=== PATIENT | male | born 1975 | race Caucasian/White ===

== ENCOUNTER 2017-07-18 13:39 | Observation (INO) | payer OTHER ==
[2017-07-18] MEDS ORDERED: Aspirin 81 MG Tab.Chew PO ONE (13:51)
[2017-07-18] MEDS ORDERED: LORazepam 2 MG/ML SDV IVPUSH ONE (13:52)
[2017-07-18] MEDS ORDERED: Sodium Chloride 0.9% 2.5 ML Syringe FLUSH PRN ×3 (13:53→17:55)
[2017-07-18] MEDS ORDERED: Sodium Chloride 0.9% 10 ML Syringe FLUSH PRN ×2 (13:53→17:55)
[2017-07-18] MEDS: Nitroglycerin 0.4 MG Tab.SL SL PRN ×3 (13:57→14:17)
--- NOTE | 2017-07-18 15:15 | EDM.PDOC ---
ED HPI GENERAL MEDICAL PROBLEM - General Chief Complaint: Chest Pain Stated Complaint: CHEST PAIN Time Seen by Provider: 07/18/17 13:55 Source of Information: Reports: Patient History Limitations: Reports: No Limitations - History of Present Illness INITIAL COMMENTS - FREE TEXT/NARRATIVE: Presents reporting hypertension and chest pain. Patient reports a two-week history of some chest pain--he was seen by his primary provider one week ago. He was found to be hypertensive and was started on 2 new medications. He was set up for a stress test with cardiology for tomorrow after ACS was ruled out. He states that he has had some constant substernal chest pain which radiates some to the left precordium and occasionally into the left shoulder and down to the fingers. He has pain even at rest at a low level. He characterizes the pain as "sharp". Not accompanied by nausea or sweating but does make him feel like he is somewhat short of breath. Today, after getting up with his usual level of chest pain it became worse and he became concerned. He also had a headache some lightheadedness and felt like his blood pressure was up. - Related Data Allergies Allergy/AdvReac Type Severity Reaction Status Date / Time loratadine [From Claritin] Allergy Disorientat Verified 02/24/15 13:59 ion Shellfish Allergy Swelling Uncoded 09/12/14 14:35 Home Meds: Home Meds Zolpidem [Ambien] 1 tab PO DAILY PRN 09/12/14 [History] oxyCODONE HCl/Acetaminophen [Endocet 7.5-325 mg Tablet] 1 tab PO Q8H PRN [History] tiZANidine HCl [Tizanidine HCl] 1 tab PO Q4HR PRN 09/12/14 [History] Past Medical History Cardiovascular History: Reports: Hypertension Other Respiratory History: 20 yr history smoking on/off tobacco use, Using CHantix to reduce and quit Other Genitourinary History: Penile mass past 3 yrs, gradually increasing in size Other Musculoskeletal History: hx: fractured arm, Chronic low back pain, hx: low back surgery, myofascial pain syndrome, Ulnar neuropathy of both Upper Extremities - Past Surgical History Other Neurological Surgeries/Procedures: Low back surgery Other Musculoskeletal Surgeries/Procedures:: lower back surgery Social & Family History - Tobacco Use Smoking Status *Q: Current Every Day Smoker Years of Tobacco use: 20 Packs/Tins Daily: 1 - Caffeine Use Caffeine Use: Reports: Other - Recreational Drug Use Recreational Drug Use: No Drug Use in Last 12 Months: No ED ROS GENERAL - Review of Systems Review Of Systems: ROS reveals no pertinent complaints other than HPI. ED EXAM, GENERAL - Physical Exam Exam: See Below Exam Limited By: No Limitations General Appearance: Alert, No Apparent Distress Ears: Normal External Exam Nose: Normal Inspection Throat/Mouth: Normal Inspection Head: Atraumatic, Normocephalic Neck: Normal Inspection Respiratory/Chest: No Respiratory Distress, Lungs Clear, Normal Breath Sounds Cardiovascular: Normal Peripheral Pulses, Regular Rate, Rhythm, No Murmur GI/Abdominal: Soft Extremities: Normal Inspection Neurological: Alert, Oriented Psychiatric: Anxious (Mildly) Skin Exam: Warm, Dry, Intact, Normal Color, No Rash Lymphatic: No Adenopathy Course - Vital Signs Last Recorded V/S: Last Vital Signs Temp 36.0 C 07/18/17 13:47 Pulse 83 07/18/17 15:32 Resp 13 07/18/17 15:32 BP 111/73 07/18/17 15:32 Pulse Ox 94 L 07/18/17 15:32 - Orders/Labs/Meds Orders: Active Orders 24 hr Category Date Time Status EKG 12 Lead [EKG Documentation Completion] [RC] STAT Care 07/18/17 13:47 Active EKG Documentation Completion [RC] STAT Care 07/18/17 13:53 Active Pulse Oximetry [RC] ASDIRECTED Care 07/18/17 13:53 Active Sodium Chloride 0.9% [Saline Flush] Med 07/18/17 13:53 Active 10 ml FLUSH ASDIRECTED PRN Sodium Chloride 0.9% [Saline Flush] Med 07/18/17 13:53 Active 2.5 ml FLUSH ASDIRECTED PRN Sodium Chloride 0.9% [Saline Flush] Med 07/18/17 13:53 Active 2.5 ml FLUSH ASDIRECTED PRN Saline Lock Insert [OM.PC] Stat Oth 07/18/17 13:53 Ordered Medication Orders Sodium Chloride (Saline Flush) 2.5 ml FLUSH ASDIRECTED PRN PRN Reason: Keep Vein Open Last Admin: 07/18/17 13:58 Dose: 2.5 ml Sodium Chloride (Saline Flush) 10 ml FLUSH ASDIRECTED PRN PRN Reason: Keep Vein Open Last Admin: 07/18/17 13:58 Dose: 10 ml Sodium Chloride (Saline Flush) 2.5 ml FLUSH ASDIRECTED PRN PRN Reason: Keep Vein Open Last Admin: 07/18/17 13:58 Dose: 2.5 ml Labs: Laboratory Tests 07/18/17 07/18/17 Range/Units 13:44 14:42 WBC 13.77 H (4.0-11.0) K/uL RBC 5.39 (4.50-5.90) M/uL Hgb 17.2 H (13.0-17.0) g/dL Hct 48.2 (38.0-50.0) % MCV 89.4 (80.0-98.0) fL MCH 31.9 (27.0-32.0) pg MCHC 35.7 (31.0-37.0) g/dL RDW Std Deviation 44.3 (28.0-62.0) fl RDW Coeff of Gonzalo 14 (11.0-15.0) % Plt Count 289 (150-400) K/uL MPV 11.20 (7.40-12.00) fL Neut % (Auto) 73.3 (48.0-80.0) % Lymph % (Auto) 19.8 (16.0-40.0) % Delta % (Auto) 5.9 (0.0-15.0) % Eos % (Auto) 0.8 (0.0-7.0) % Baso % (Auto) 0.2 (0.0-1.5) % Neut # (Auto) 10.1 H (1.4-5.7) K/uL Lymph # (Auto) 2.7 H (0.6-2.4) K/uL [place] # (Auto) 0.8 (0.0-0.8) K/uL Eos # (Auto) 0.1 (0.0-0.7) K/uL Baso # (Auto) 0.0 (0.0-0.1) K/uL Nucleated RBC % 0.0 /100WBC Nucleated RBCs # 0 K/uL Sodium 138 (136-148) mmol/L Potassium 3.5 (3.5-5.1) mmol/L Chloride 106 (98-107) mmol/L Carbon Dioxide 25.9 (21.0-32.0) mmol/L BUN 11 (7.0-18.0) mg/dL Creatinine 1.0 (0.8-1.3) mg/dL Est Cr Clr Drug Dosing 115.01 mL/min Estimated GFR (MDRD) > 60.0 ml/min Glucose 139 H (74-106) mg/dL Calcium 8.9 (8.5-10.1) mg/dL Total Bilirubin 0.3 (0.2-1.0) mg/dL AST 38 H (15-37) IU/L ALT 60 (14-63) IU/L Alkaline Phosphatase 82 (46-116) U/L Troponin I < 0.050 (0.000-0.056) ng/mL Total Protein 7.1 (6.4-8.2) g/dL Albumin 3.4 (3.4-5.0) g/dL Globulin 3.7 H (2.0-3.5) g/dL Albumin/Globulin Ratio 0.9 L (1.3-2.8) Meds: Medications Generic Name Dose Route Start Last Admin Trade Name Freq PRN Reason Stop Dose Admin Sodium Chloride 2.5 ml 07/18/17 13:53 07/18/17 13:58 Saline Flush FLUSH 2.5 ml ASDIRECTED PRN Administration Keep Vein Open Sodium Chloride 10 ml 07/18/17 13:53 07/18/17 13:58 Saline Flush FLUSH 10 ml ASDIRECTED PRN Administration Keep Vein Open Sodium Chloride 2.5 ml 07/18/17 13:53 07/18/17 13:58 Saline Flush FLUSH 2.5 ml ASDIRECTED PRN Administration Keep Vein Open Discontinued Medications Generic Name Dose Route Start Last Admin Trade Name Freq PRN Reason Stop Dose Admin Aspirin 324 mg 07/18/17 13:51 07/18/17 13:56 Aspirin PO 07/18/17 13:52 324 mg ONETIME ONE Administration Lorazepam 0.5 mg 07/18/17 13:52 07/18/17 14:21 Ativan IVPUSH 07/18/17 13:53 0.5 mg ONETIME ONE Administration Nitroglycerin 0.4 mg 07/18/17 13:52 07/18/17 14:17 Nitrostat SL 0.4 mg Q5M PRN Administration Chest Pain - Re-Assessments/Exams Free Text/Narrative Re-Assessment/Exam: 07/18/17 15:49 After 3 nitroglycerin sublingual, Ativan 0.5 mg and one hours time the patient' s chest pain slowly came down to 1-2 but remained substernal. No other associated symptoms. He has been resting quietly. Dr.Antohi SAINZ hospitalist called, history and ER course reviewed. Will admit for observation under telemetry. Departure - Departure Time of Disposition: 15:53 Disposition: Home, Self-Care 01 Condition: Good Clinical Impression: Atypical chest pain Forms: ED Department Discharge - My Orders Last 24 Hours: My Active Orders 07/18/17 13:53 EKG Documentation Completion [RC] STAT Pulse Oximetry [RC] ASDIRECTED Sodium Chloride 0.9% [Saline Flush] 10 ml FLUSH ASDIRECTED PRN Sodium Chloride 0.9% [Saline Flush] 2.5 ml FLUSH ASDIRECTED PRN Sodium Chloride 0.9% [Saline Flush] 2.5 ml FLUSH ASDIRECTED PRN Saline Lock Insert [OM.PC] Stat - Assessment/Plan Last 24 Hours: My Active Orders 07/18/17 13:53 EKG Documentation Completion [RC] STAT Pulse Oximetry [RC] ASDIRECTED Sodium Chloride 0.9% [Saline Flush] 10 ml FLUSH ASDIRECTED PRN Sodium Chloride 0.9% [Saline Flush] 2.5 ml FLUSH ASDIRECTED PRN Sodium Chloride 0.9% [Saline Flush] 2.5 ml FLUSH ASDIRECTED PRN Saline Lock Insert [OM.PC] Stat
[2017-07-18 15:17] LABS: CHLORIDE,CL 106 mmol/L (98-107); SODIUM,NA 138 mmol/L (136-148)
[2017-07-18] MEDS ORDERED: Ondansetron 4 MG/2 ML SDV IVPUSH PRN (17:55)
[2017-07-18] MEDS ORDERED: Morphine 4 MG/ML Syringe IVPUSH PRN (17:55)
[2017-07-18] MEDS ORDERED: Enoxaparin 40 MG/0.4 ML Syringe SUBCUT SCH (18:00)
[2017-07-18] MEDS ORDERED: Acetaminophen/oxyCODONE 325-10 MG Tab PO PRN (20:51)
[2017-07-18] MEDS ORDERED: Albuterol 8 GM Inhaler INH PRN (20:55)
[2017-07-18] MEDS ORDERED: tiZANidine 4 MG Tab PO PRN (21:00)
[2017-07-18] MEDS: amLODIPine 5 MG Tab PO SCH (21:41)
[2017-07-18] MEDS: Losartan 50 MG Tab PO SCH (21:42)
--- NOTE | 2017-07-18 21:59 | PCM.HP ---
H&P History of Present Illness - General Date of Service: 07/18/17 Admit Problem/Dx: Admission Diagnosis/Problem Admission Diagnosis/Problem Chest discomfort Patient 42 y old man with stage 3 obesity presented to Er due to chest pain that started 2 weeks ago and was described sometimes sharp , sometimes pressure like , but since yesterday morning he start having continuous Cp moderate in the intensity , worse with breathing and tender to palpation , left side of chest. Sometimes the pain was pressure like. He also complains of having problems with blood pressure for the past few months and he was started on 2 blood pressure medications by his PCP. His blood pressure still it is not well controlled, sometimes his blood pressure diastolic was as high as 135 mmhg with systolic blood pressure between 160-170 mmHG Had multiple spine surgeries for herniated cervical and lumbar discs, has chronic back pain, smokes about 1 PPD daily and was scheduled for a stress test tomorrow. States that when blood pressure is high , he " has confusion" , "disorientation" which he describes as difficulties in finding words or concentrating. Source of Information: Patient History Limitations: Reports: No Limitations - History of Present Illness Onset of Symptoms: Reports: Gradual Duration of Symptoms: Reports: Day(s): Location: Reports: Chest Associated Symptoms: Reports: Confusion, Chest Pain Chest Pain Score (Numeric/FACES): 2 - Related Data Allergies/Adverse Reactions: Allergies Allergy/AdvReac Type Severity Reaction Status Date / Time loratadine [From Claritin] Allergy Disorientat Verified 02/24/15 13:59 ion Shellfish Allergy Swelling Uncoded 09/12/14 14:35 Home Medications: Home Meds Zolpidem [Ambien] 1 tab PO DAILY PRN 09/12/14 [History] tiZANidine HCl [Tizanidine HCl] 1 tab PO Q4HR PRN 09/12/14 [History] ALPRAZolam [Xanax] 1 mg PO PRN 07/18/17 [History] Albuterol [Proventil HFA] 2 puff INH Q4H PRN 07/18/17 [History] Ibuprofen 200 mg PO PRN 07/18/17 [History] Losartan [Cozaar] 2 tab PO DAILY 07/18/17 [History] amLODIPine [Norvasc] 5 mg PO DAILY 07/18/17 [History] oxyCODONE HCl/Acetaminophen [Percocet 10-325 mg Tablet] 1 tab PO TID PRN [History] Nitroglycerin [Nitrostat] 0.4 mg SL Q5M PRN #20 tab.sl 07/19/17 [Rx] Past Medical History Cardiovascular History: Reports: Hypertension Other Respiratory History: 20 yr history smoking on/off tobacco use, Using CHantix to reduce and quit Other Genitourinary History: Penile mass past 3 yrs, gradually increasing in size Musculoskeletal History: Reports: Neck Pain, Chronic Other Musculoskeletal History: hx: fractured arm, Chronic low back pain, hx: low back surgery, myofascial pain syndrome, Ulnar neuropathy of both Upper Extremities Psychiatric History: Reports: Anxiety - Infectious Disease History Infectious Disease History: Reports: Chicken Pox, Measles - Past Surgical History HEENT Surgical History: Reports: Adenoidectomy, Tonsillectomy Cardiovascular Surgical History: Reports: None Respiratory Surgical History: Reports: None GI Surgical History: Reports: Appendectomy Male Surgical History: Reports: Other (See Below) Other Male Surgeries/Procedures: mass removed Other Neurological Surgeries/Procedures: Low back surgery Other Musculoskeletal Surgeries/Procedures:: lower back surgery neck surgery Social & Family History - Tobacco Use Smoking Status *Q: Current Every Day Smoker Years of Tobacco use: 18 Packs/Tins Daily: 1 Tobacco Use Comment: pt will be starting Chantrix - Caffeine Use Caffeine Use: Reports: Coffee - Recreational Drug Use Recreational Drug Use: No Drug Use in Last 12 Months: No H&P Review of Systems - Review of Systems: Review Of Systems: See Below General: Reports: No Symptoms HEENT: Reports: No Symptoms Pulmonary: Reports: No Symptoms Cardiovascular: Reports: Chest Pain Gastrointestinal: Reports: No Symptoms Genitourinary: Reports: No Symptoms Musculoskeletal: Reports: Back Pain Skin: Reports: No Symptoms Psychiatric: Reports: No Symptoms Neurological: Reports: Confusion Hematologic/Lymphatic: Reports: No Symptoms Immunologic: Reports: No Symptoms Exam - Exam Exam: See Below - Vital Signs Vital Signs: Last Vital Signs Temp 97.3 F 07/18/17 17:00 Pulse 79 07/18/17 17:00 Resp 18 07/18/17 17:00 BP 119/86 07/18/17 17:00 Pulse Ox 97 07/18/17 17:00 Weight: 302 lb 12.8 oz - Exam Quality Assessment: Supplemental Oxygen General: Alert, Oriented, Cooperative HEENT: Conjunctiva Clear, EOMI, Hearing Intact Neck: Supple, Trachea Midline Lungs: Clear to Auscultation - Patient Data Lab Results Last 24 hrs: Laboratory Results - last 24 hr 07/18/17 07/18/17 07/18/17 Range/Units 13:44 14:42 20:45 WBC 13.77 H (4.0-11.0) K/uL RBC 5.39 (4.50-5.90) M/uL Hgb 17.2 H (13.0-17.0) g/dL Hct 48.2 (38.0-50.0) % MCV 89.4 (80.0-98.0) fL MCH 31.9 (27.0-32.0) pg MCHC 35.7 (31.0-37.0) g/dL RDW Std Deviation 44.3 (28.0-62.0) fl RDW Coeff of Gonzalo 14 (11.0-15.0) % Plt Count 289 (150-400) K/uL MPV 11.20 (7.40-12.00) fL Neut % (Auto) 73.3 (48.0-80.0) % Lymph % (Auto) 19.8 (16.0-40.0) % [place] % (Auto) 5.9 (0.0-15.0) % Eos % (Auto) 0.8 (0.0-7.0) % Baso % (Auto) 0.2 (0.0-1.5) % Neut # (Auto) 10.1 H (1.4-5.7) K/uL Lymph # (Auto) 2.7 H (0.6-2.4) K/uL [place] # (Auto) 0.8 (0.0-0.8) K/uL Eos # (Auto) 0.1 (0.0-0.7) K/uL Baso # (Auto) 0.0 (0.0-0.1) K/uL Nucleated RBC % 0.0 /100WBC Nucleated RBCs # 0 K/uL Sodium 138 (136-148) mmol/L Potassium 3.5 (3.5-5.1) mmol/L Chloride 106 (98-107) mmol/L Carbon Dioxide 25.9 (21.0-32.0) mmol/L BUN 11 (7.0-18.0) mg/dL Creatinine 1.0 (0.8-1.3) mg/dL Est Cr Clr Drug Dosing 115.01 mL/min Estimated GFR (MDRD) > 60.0 ml/min Glucose 139 H (74-106) mg/dL Calcium 8.9 (8.5-10.1) mg/dL Total Bilirubin 0.3 (0.2-1.0) mg/dL AST 38 H (15-37) IU/L ALT 60 (14-63) IU/L Alkaline Phosphatase 82 (46-116) U/L Troponin I < 0.050 < 0.050 (0.000-0.056) ng/mL Total Protein 7.1 (6.4-8.2) g/dL Albumin 3.4 (3.4-5.0) g/dL Globulin 3.7 H (2.0-3.5) g/dL Albumin/Globulin Ratio 0.9 L (1.3-2.8) Result Diagrams: 07/18/17 13:44 07/18/17 14:42 EKG INTERPRETATION EKG Date: 07/18/17 Rhythm: NSR P-Wave: Present QRS: Normal ST-T: Normal QT: Normal - Problem List (1) Atypical chest pain SNOMED Code(s): 281165284 ICD Code: R07.89 - OTHER CHEST PAIN Status: Acute (2) Back spasm SNOMED Code(s): 557733111 ICD Code: M62.830 - MUSCLE SPASM OF BACK Status: Acute (3) Tobacco abuse SNOMED Code(s): 463322607 ICD Code: Z72.0 - TOBACCO USE Status: Acute (4) Tobacco abuse counseling SNOMED Code(s): 359122404, 431439230, 841327950 ICD Code: Z71.6 - TOBACCO ABUSE COUNSELING Status: Acute (5) Obesity (BMI 35.0-39.9 without comorbidity) SNOMED Code(s): 106313256, 734444661 ICD Code: E66.9 - OBESITY, UNSPECIFIED Status: Acute (6) Hypertension, uncontrolled SNOMED Code(s): 88967939, 47982288 ICD Code: I10 - ESSENTIAL (PRIMARY) HYPERTENSION Status: Acute Problem List Initiated/Reviewed/Updated: Yes Orders Last 24hrs: Active Orders 24 hr Category Date Time Status Patient Status [ADT] Routine ADT 07/18/17 17:55 Active Bedrest Bathroom Privileges [RC] ASDIRECTED Care 07/18/17 17:55 Active Cardiac Monitoring [RC] CONTINUOUS Care 07/18/17 17:57 Active EKG 12 Lead [EKG Documentation Completion] [RC] STAT Care 07/18/17 13:47 Active EKG Documentation Completion [RC] STAT Care 07/18/17 13:53 Active May Shower [RC] ASDIRECTED Care 07/18/17 17:55 Active Oxygen Therapy [RC] PRN Care 07/18/17 17:55 Active Peripheral IV Care [RC] . DIRECTED Care 07/18/17 17:55 Active Pulse Oximetry [RC] ASDIRECTED Care 07/18/17 13:53 Active Pulse Oximetry [RC] PRN Care 07/18/17 17:57 Active Telemetry Monitoring [Cardiac Monitoring] [RC] . Care 07/18/17 18:05 Active DIRECTED VTE/DVT Education [RC] PER UNIT ROUTINE Care 07/18/17 17:55 Active Vital Signs [RC] Q4H Care 07/18/17 17:55 Active 2 Gram Sodium Diet [DIET] Diet 07/18/17 Dinner Active TROPONIN I [CHEM] Q6H Lab 07/19/17 02:45 Ordered Acetaminophen/oxyCODONE [Percocet 325-10 MG] Med 07/18/17 20:51 Active 1 tab PO TID PRN Albuterol [Ventolin HFA] Med 07/18/17 20:55 Active 0 gm INH Q4H PRN Enoxaparin [Lovenox] Med 07/18/17 18:00 Active 40 mg SUBCUT Q24H Losartan [Cozaar] Med 07/18/17 21:00 Active 100 mg PO DAILY Morphine Med 07/18/17 17:55 Active 2 mg IVPUSH Q2H PRN Ondansetron [Zofran] Med 07/18/17 17:55 Active 4 mg IVPUSH Q4H PRN Sodium Chloride 0.9% [Saline Flush] Med 07/18/17 13:53 Active 10 ml FLUSH ASDIRECTED PRN Sodium Chloride 0.9% [Saline Flush] Med 07/18/17 17:55 Active 10 ml FLUSH ASDIRECTED PRN Sodium Chloride 0.9% [Saline Flush] Med 07/18/17 13:53 Active 2.5 ml FLUSH ASDIRECTED PRN Sodium Chloride 0.9% [Saline Flush] Med 07/18/17 13:53 Active 2.5 ml FLUSH ASDIRECTED PRN Sodium Chloride 0.9% [Saline Flush] Med 07/18/17 17:55 Active 2.5 ml FLUSH ASDIRECTED PRN Zaleplon [Sonata] Med 07/18/17 20:59 Active 10 mg PO BEDTIME PRN amLODIPine [Norvasc] Med 07/18/17 21:45 Active 5 mg PO DAILY tiZANidine [Zanaflex] Med 07/18/17 21:00 Active 4 mg PO Q4H PRN Peripheral IV Insertion Adult [OM.PC] Routine Oth 07/18/17 17:55 Ordered Saline Lock Insert [OM.PC] Stat Oth 07/18/17 13:53 Ordered Sequential Compression Device [OM.PC] Per Unit Routine Oth 07/18/17 17:58 Ordered Resuscitation Status Routine Resus Stat 07/18/17 17:55 Ordered Medication Orders Albuterol (Ventolin Hfa) 0 gm INH Q4H PRN PRN Reason: WHEEZING Amlodipine Besylate (Norvasc) 5 mg PO DAILY [facility] Last Admin: 07/18/17 21:41 Dose: 5 mg Enoxaparin Sodium (Lovenox) 40 mg SUBCUT Q24H [facility] Last Admin: 07/18/17 18:17 Dose: 40 mg Losartan Potassium (Cozaar) 100 mg PO DAILY [facility] Last Admin: 07/18/17 21:42 Dose: 100 mg Morphine Sulfate (Morphine) 2 mg IVPUSH Q2H PRN PRN Reason: Pain (severe 7-10) Stop: 07/19/17 17:58 Ondansetron HCl (Zofran) 4 mg IVPUSH Q4H PRN PRN Reason: Nausea Oxycodone/Acetaminophen (Percocet 325-10 Mg) 1 tab PO TID PRN PRN Reason: Pain Sodium Chloride (Saline Flush) 2.5 ml FLUSH ASDIRECTED PRN PRN Reason: Keep Vein Open Last Admin: 07/18/17 13:58 Dose: 2.5 ml Sodium Chloride (Saline Flush) 10 ml FLUSH ASDIRECTED PRN PRN Reason: Keep Vein Open Last Admin: 07/18/17 13:58 Dose: 10 ml Sodium Chloride (Saline Flush) 2.5 ml FLUSH ASDIRECTED PRN PRN Reason: Keep Vein Open Last Admin: 07/18/17 13:58 Dose: 2.5 ml Sodium Chloride (Saline Flush) 10 ml FLUSH ASDIRECTED PRN PRN Reason: Keep Vein Open Sodium Chloride (Saline Flush) 2.5 ml FLUSH ASDIRECTED PRN PRN Reason: Keep Vein Open Tizanidine HCl (Zanaflex) 4 mg PO Q4H PRN PRN Reason: SPASMS Zaleplon (Sonata) 10 mg PO BEDTIME PRN PRN Reason: INSOMNIA Last Admin: 07/18/17 21:42 Dose: 10 mg Assessment/Plan Comment:: Cp r/o ACS - atypical - r/o acs - will admit patient to telemetry , f/up 3 sets of cardiac enzymes, aspirin 325 mg po daily ,lipid profile , hemoglobin a 1c. Cardiologhy consult , stress test tomorrow if cardiac enzymes are negative Htn uncontrolled - continue losartan 100 mg po daily , amlodipine 5 mg po daily Back pain chronic - continue home medication , Percocet 325/10 mg po q 6 h prn for pain , Zanaflex 4 mg Anxiety , insomnia- continue home medications : xanax , zonata Dvt profilaxis: heparin sq
[2017-07-19] MEDS: Losartan 50 MG Tab PO SCH (09:20)
[2017-07-19] MEDS: amLODIPine 5 MG Tab PO SCH (09:20)
--- NOTE | 2017-07-19 13:23 | NM ---
EXAMINATION: Nuclear medicine myocardial perfusion study with exercise stress test. HISTORY: Chest pain. PROCEDURE: Patient exercised according to Ahmet protocol for 7 minutes and 4 seconds and achieved maximal heart rate of 162 beats per minute. Adequate exercise. Following intravenous administration of 8.8 and 30.6 mCi of technetium 99m sestamibi, stress and re st SPECT images including gating imaging was performed. FINDINGS: Stress and rest myocardial SPECT images demonstrates mildly decreased uptake at the apex extending sl ightly into the inferolateral wall. This appears mildly reversible. Review of gated images demonstrates normal wall motion, contractility and wall thickening. The left v entricular ejection fraction is 60 %. The left ventricular chamber size is normal. IMPRESSION: 1. Possible small area of mildly decreased perfusion near the apex. 2. Normal ventricular chamber size and function with ejection fraction of 60 %.
[2017-07-19 15:27] VITALS: BP 163/95
--- NOTE | 2017-07-19 19:05 | CONS ---
DATE OF CONSULTATION: DATE OF : 1975 PRIMARY CARE PHYSICIAN: None PCP REASON FOR CONSULTATION: Chest pain. HISTORY OF PRESENT ILLNESS: This is a 42-year-old male who has a history of hypertension as well as obesity, so he presented to the emergency room due to the chest pain. He started having a chest pain 3 weeks ago. He described the chest pain as a sharp pain at the left rib cage. It was happening in very short period of time. It could vary from 1 minute to 10 to 20 minutes and it occurs 3 or 4 times a day almost every day. He rated the pain about 8 to 9 from 10 pain scale. It was sharp pain and sometimes he feels a tingling in his left arm pain as well. He also has another pain, which he describes as a pressure in the retrosternal area. It does not radiate. It was not that severe as the sharp pain. He knew that is there. He rated the pain around 3 or 4. It seemed to be constant pain. He also denied related symptoms such as sweating, nausea, vomiting, and questioning shortness of breath. He sometimes get dizzy with chest pain. He also stated that when he takes a deep breath he feels the chest pain in the left rib cage is getting worse. It is not really related to position. He denies fever or coughing. He is scheduled to have outpatient stress test, however, he came into the emergency room and got admitted to the hospital. While in the hospital, initial EKG did not show any Q-wave or abnormal ST segment. He also was ruled out for ACS. His troponin has been negative for 3 times. He also has elevated triglycerides and also cholesterol level, LDL was 135. Hemoglobin A1c 5.7. He also stated that over the past week, he has been having elevated blood pressure in the 160 and one of his medication which is Cozaar has been doubled from 50 mg to 100 mg, so currently he is taking amlodipine 5 mg once a day as well as Cozaar 100 mg once a day. Regarding his physical activities, he said that he is working okay. 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 He sometimes gets winded. However, his short on air does not stay long. Then he stated that he walks up one flight of stairs, he could get winded as well, but he denied leg swelling, orthopnea, or PND. Three months ago, he was diagnosed with pneumonia. He had a chest x-ray. He did not remember if that chest x-ray showed pneumonia on the left or the right lungs. He was treated with antibiotic as an outpatient. He even has a stress test done before. Denied history of angina or heart attack and he also stated that he does house work okay. He also denies syncope, heart racing. Denied history of diabetes. He also stated that he took 1 nitroglycerin and then he came to the emergency room, he got 1 nitroglycerin as well as Ativan 0.5 IV push and aspirin and then chest pain seemed to be gone away and he got like 3 nitroglycerin. SOCIAL HISTORY: He is a current smoker. He does not drink alcohol daily. He did not do drugs. FAMILY HISTORY: His father has history of COPD. His mother had history of hypertension. His grandmother had a history of diabetes. ALLERGIES: He is allergic to shellfish as well as loratadine. REVIEW OF SYSTEMS: Except as indicated in HPI, otherwise been negative. PHYSICAL EXAMINATION: VITAL SIGNS: Initial blood pressure was 181/131, it came down by itself to 128/88 and come back up again to 163/95, the heart rate of 84 to 100, temperature is 36.6, O2 saturation is 97% on room air, and respiration rate is 16. HEENT: No pallor. No jaundice. No JVD. HEART: Normal S1, S2. No murmur. Regular rate and rhythm. LUNGS: Clear. No crackles. No wheezing. ABDOMEN: Soft, nontender. Bowel sounds are present. No hepatosplenomegaly. LEGS: No edema. INVESTIGATION: EKG July 18, 2017, shows sinus rhythm, heart rate of 90, GA interval 189, QRS duration 106, QTc 422. Exercise nuclear perfusion scan 07/19/2017, shows he completed stage 3 of Ahmet protocol of 7 minute and 10 METS. Did not have a chest pain while doing the exercise. There might be some ST abnormalities during the peak heart rate, however, there are numerous interference that could affect baseline ST-segment. Otherwise, his vital signs have been reasonable during the exercise and his perfusion scan showed possible small apical area, reversible perfusion defect. However, only resting imaging was gated and seemed to be normal wall motion on the resting images and the stress images were not gated. The wall motion on the stress portion cannot be assessed and his resting ejection fraction was 59%. His current medications including amlodipine 5 mg once a day. Cozaar 100 mg once a day. ASSESSMENT AND PLAN: This is 42-year-old male with a history of hypertension, obesity, and also hyperlipidemia with ASCVD 6.6%. His chest pain was nonexertional and also pleuritic chest pain. It does not sound very typical for cardiac angina. Perfusion scan exercise nuclear test apparently showed possible perfusion defect at the apical area as well as along with the inferior wall. However, only resting image was gated, so it is difficult to see if the perfusion defect actually is a tissue attenuation artifact or the real finding of the blockage. Currently his chest pain seemed to be subsiding and he has been ruled out for ACS and his chest pain does not seem to be typical for cardiac angina. At this point, we are going to discharge him as an outpatient. We will schedule for a stress echocardiogram in [place] in [place]. I will recommend to prescribe him for a nitroglycerin sublingual and he if he tried 2 pills and the pain does not come down, he should come to the emergency room for further workup. Regarding his cholesterol, his ASCVD was 6.6. He should be on a low-dose statin and his A1c 5.7. ESTELLE ERICKSON /[id number]
--- NOTE | 2017-07-20 10:55 | PCM.PRNOTE ---
- Free Text/Narrative Note: Procedure: Cardiolite exercise stress test Resting blood pressure 120/84, pulse 99 Patient exercised per Ahmet protocol 7 minutes and 4 seconds and achieved a maximum heart rate of 162 bpm which was 91% of age-predicted maximum heart rate. Mets: 10.1 double product 72141 Resting EKG revealed normal sinus rhythm. With exertion, no significant ST-T changes were noted. Test stopped at target heart rate. No complaints of chest pain during exercise or recovey with an unremarkable recovery phase. Impression: #1. Negative stress test for ischemic ST-T changes #2. Poor exercise tolerance #3. Cardiolite portion of test pending
== END 2017-07-19 16:50 | disposition home or self-care (01) ==
LOC: MW.ED 13:39 → MW.MS 16:13
PROVIDERS: ADMIT Internal Medicine; ATTEND Internal Medicine
DX: R07.89 Other chest pain (principal); M62.830 Muscle spasm of back; I10 Essential (primary) hypertension; F41.9 Anxiety disorder, unspecified; E66.9 Obesity, unspecified; G89.29 Other chronic pain; M54.5 Low back pain; Z88.8 Allergy status to other drugs, medicaments and biological substances; Z91.013 Allergy to seafood; Z79.899 Other long term (current) drug therapy; F17.210 Nicotine dependence, cigarettes, uncomplicated; Z68.35 Body mass index [BMI] 35.0-35.9, adult
CPT/HCPCS: 36415; 78452; 80053; 80061; 83036; 84484; 85025; 93005; 93017; 96374; 99285; A9270; A9500; J1650; J2060

== ENCOUNTER 2017-08-23 11:23 | Emergency (ER) | payer OTHER ==
[2017-08-23] MEDS ORDERED: Aspirin 81 MG Tab.Chew PO ONE (11:27)
--- NOTE | 2017-08-23 11:29 | EDM.PDOC ---
ED HPI GENERAL MEDICAL PROBLEM - General Chief Complaint: Chest Pain Stated Complaint: CHEST PAIN Time Seen by Provider: 08/23/17 11:26 Source of Information: Reports: Patient History Limitations: Reports: No Limitations - History of Present Illness INITIAL COMMENTS - FREE TEXT/NARRATIVE: HISTORY AND PHYSICAL: History of present illness: Patient is a 42-year-old male who presents to the emergency room today with complaints of chest pain, left-sided numbness/tingling radiated into his left shoulder, starting approximately 30 minutes prior to arrival. Patient has been seeing our hospital architectural examiner, Dr. Prather, for intermittent chest pain. He states he has had an angiogram and several visits which all have been "normal ". He does have nitroglycerin sublingual available to him for these episodes of chest pain. He states he took the Nitro prior to arrival, but did not have any chest pain relief. He states "I'm only here because I'm told to be here". He denies any weakness or change in motor function with this sensation of numbness and tingling to his left side. His speech is regular and does not have any noticeable facial drooping or slurred speech. He denies any fever, chills, shortness of breath, diaphoresis. He denies any abdominal pain, nausea, vomiting, diarrhea or constipation. Review of systems: As per history of present illness and below otherwise all systems reviewed and negative. Past medical history: As per history of present illness and as reviewed below otherwise noncontributory. Surgical history: As per history of present illness and as reviewed below otherwise noncontributory. Social history: No reported history of drug or alcohol abuse. Family history: As per history of present illness and as reviewed below otherwise noncontributory. Physical exam: General: Well-developed and well-nourished 42-year-old male. Alert and oriented. Nontoxic appearing and in no acute distress. HEENT: Atraumatic, normocephalic, pupils equal and reactive bilaterally, negative for conjunctival pallor or scleral icterus, mucous membranes moist, throat clear, neck supple, nontender, trachea midline. No drooling or trismus noted. No meningeal signs Lungs: Fine expiratory wheezing noted to the left mid/lower lobe, breath sounds equal bilaterally, chest nontender. Heart: S1S2, regular rate and rhythm without overt murmur Abdomen: Soft, nondistended, nontender. Negative for masses or hepatosplenomegaly. Negative for costovertebral tenderness. Pelvis: Stable nontender. Genitourinary: Deferred. Rectal: Deferred. Skin: Intact, warm, dry. No lesions or rashes noted. Extremities: Atraumatic, negative for cords or calf pain. Neurovascular unremarkable. Neuro: Awake, alert, oriented. Cranial nerves II through XII unremarkable. Cerebellum unremarkable. Motor and sensory unremarkable throughout. Exam nonfocal. Notes: Patient had nitroglycerin prior to arrival. He has not had any aspirin, 324 mg chewable will be given to him while here. Patient's current lab work is unremarkable. WBC is 16; but no source is noted. Patient was made aware of his slightly elevated WBC and encouraged to follow up with his PCP regarding this. His chest x-ray and head CT are within normal limits. Patient continues to have paresthesia to the left side of his face. We did discuss in length about the availability of neurology here at our facility. He discussed the option of being transferred to [place] in [place] for Neurology consult; he declines. He is aware of the risks of being discharged, and accepts those risks. The is at the bedside. Our medical lab tech instructor, Dr. Chatterjee also spoke with patient/family to discuss plan of care. Patient continues to request discharge. The states that they will go to [place] by private vehicle if needed. Vital signs remain stable. Signs and symptoms that would prompt him to return to the emergency room are reviewed and discussed. Both patient and voiced understanding and are agreeable. They deny any further questions at this time. Diagnostics: CBC, CMP, Troponin, EKG, CXR, Head CT, Multiple Pressure Riveter [employer]: Aspirin Impression: Chest Pain with unclear etiology Parasthesia Plan: 1. You declined admission today. If your symptoms return or worsen please return to the emergency room as soon as possible (Please call an ambulance). 2. Please informed your primary care provider and the architectural examiner that you were seen in the emergency room for your symptoms. I would like you to follow- up with them in the next 1-2 days. Definitive disposition and diagnosis as appropriate pending reevaluation and review of above. Onset: Today Duration: Hour(s): Location: Reports: Head, Face, Chest, Upper Extremity, Left chest Pain Score (Numeric/FACES): 3 - Related Data Allergies Allergy/AdvReac Type Severity Reaction Status Date / Time loratadine [From Claritin] Allergy Disorientat Verified 08/23/17 11:25 ion Shellfish Allergy Swelling Uncoded 09/12/14 14:35 Home Meds: Home Meds Isosorbide Mononitrate [Isosorbide Mononitrate ER] 30 mg PO DAILY 08/23/17 [ History] Losartan Potassium 50 mg PO DAILY 08/23/17 [History] Metoprolol Succinate [Toprol XL] 25 mg PO DAILY 08/23/17 [History] Nitroglycerin [Nitrostat] 0.4 mg SL ASDIRECTED 08/23/17 [History] Zolpidem Tartrate 10 mg PO BEDTIME PRN 08/23/17 [History] amLODIPine Besylate [Amlodipine Besylate] 5 mg PO DAILY 08/23/17 [History] Past Medical History Cardiovascular History: Reports: Hypertension Other Respiratory History: 20 yr history smoking on/off tobacco use, Using CHantix to reduce and quit Other Genitourinary History: Penile mass past 3 yrs, gradually increasing in size Musculoskeletal History: Reports: Neck Pain, Chronic Other Musculoskeletal History: hx: fractured arm, Chronic low back pain, hx: low back surgery, myofascial pain syndrome, Ulnar neuropathy of both Upper Extremities Psychiatric History: Reports: Anxiety - Infectious Disease History Infectious Disease History: Reports: Chicken Pox, Measles - Past Surgical History HEENT Surgical History: Reports: Adenoidectomy, Tonsillectomy Cardiovascular Surgical History: Reports: None Respiratory Surgical History: Reports: None GI Surgical History: Reports: Appendectomy Male Surgical History: Reports: Other (See Below) Other Male Surgeries/Procedures: mass removed Other Neurological Surgeries/Procedures: Low back surgery Other Musculoskeletal Surgeries/Procedures:: lower back surgery neck surgery Social & Family History - Caffeine Use Caffeine Use: Reports: Coffee ED ROS GENERAL - Review of Systems Review Of Systems: ROS reveals no pertinent complaints other than HPI. ED EXAM, GENERAL - Physical Exam Exam: See Below (See dictation) Course - Vital Signs Last Recorded V/S: Last Vital Signs Temp 97.7 F 08/23/17 11:26 Pulse 75 08/23/17 12:15 Resp 18 08/23/17 12:15 BP 127/70 08/23/17 12:15 Pulse Ox 98 05/23/18 12:15 - Orders/Labs/Meds Orders: Active Orders 24 hr Category Date Time Status EKG Documentation Completion [RC] STAT Care 08/23/17 11:27 Active Chest 2V [CR] Stat Exams 08/23/17 11:27 Taken Head wo Cont [CT] Stat Exams 08/23/17 11:27 Taken Sodium Chloride 0.9% [Normal Saline] 1,000 ml Med 08/23/17 11:51 Active IV STAT Medication Orders Sodium Chloride (Normal Saline) 1,000 mls @ 125 mls/hr IV STAT ONE Stop: 08/23/17 19:50 Last Admin: 08/23/17 12:45 Dose: Not Given Labs: Laboratory Tests 08/23/17 08/23/17 Range/Units 11:29 11:29 WBC 16.96 H (4.0-11.0) K/uL RBC 5.11 (4.50-5.90) M/uL Hgb 16.2 (13.0-17.0) g/dL Hct 46.5 (38.0-50.0) % MCV 91.0 (80.0-98.0) fL MCH 31.7 (27.0-32.0) pg MCHC 34.8 (31.0-37.0) g/dL RDW Std Deviation 46.9 (28.0-62.0) fl RDW Coeff of Gonzalo 14 (11.0-15.0) % Plt Count 324 (150-400) K/uL MPV 10.40 (7.40-12.00) fL Neut % (Auto) 72.0 (48.0-80.0) % Lymph % (Auto) 18.0 (16.0-40.0) % Hays % (Auto) 8.6 (0.0-15.0) % Eos % (Auto) 1.1 (0.0-7.0) % Baso % (Auto) 0.3 (0.0-1.5) % Neut # (Auto) 12.2 H (1.4-5.7) K/uL Lymph # (Auto) 3.1 H (0.6-2.4) K/uL Hays # (Auto) 1.5 H (0.0-0.8) K/uL Eos # (Auto) 0.2 (0.0-0.7) K/uL Baso # (Auto) 0.1 (0.0-0.1) K/uL Nucleated RBC % 0.0 /100WBC Nucleated RBCs # 0 K/uL Sodium 139 (136-148) mmol/L Potassium 4.4 (3.5-5.1) mmol/L Chloride 104 (98-107) mmol/L Carbon Dioxide 26.2 (21.0-32.0) mmol/L BUN 13 (7.0-18.0) mg/dL Creatinine 1.2 (0.8-1.3) mg/dL Est Cr Clr Drug Dosing 95.84 mL/min Estimated GFR (MDRD) > 60.0 ml/min Glucose 106 (74-106) mg/dL Calcium 8.6 (8.5-10.1) mg/dL Total Bilirubin 0.4 (0.2-1.0) mg/dL AST 33 (15-37) IU/L ALT 56 (14-63) IU/L Alkaline Phosphatase 79 (46-116) U/L Troponin I < 0.050 (0.000-0.056) ng/mL Total Protein 7.1 (6.4-8.2) g/dL Albumin 3.6 (3.4-5.0) g/dL Globulin 3.5 (2.0-3.5) g/dL Albumin/Globulin Ratio 1.0 L (1.3-2.8) Meds: Medications Generic Name Dose Route Start Last Admin Trade Name Freq PRN Reason Stop Dose Admin Sodium Chloride 1,000 mls @ 125 mls/hr 08/23/17 11:51 08/23/17 12:45 Normal Saline IV 08/23/17 19:50 Not Given STAT ONE Discontinued Medications Generic Name Dose Route Start Last Admin Trade Name Freq PRN Reason Stop Dose Admin Aspirin 324 mg 08/23/17 11:27 08/23/17 11:31 Aspirin PO 08/23/17 11:28 324 mg ONETIME ONE Administration Departure - Departure Time of Disposition: 13:13 Disposition: Home, Self-Care 01 Clinical Impression: Paresthesia Chest pain, unspecified Qualifiers: Chest pain type: unspecified Qualified Code(s): R07.9 - Chest pain, unspecified Instructions: Nonspecific Chest Pain, [id number], Paresthesia, [id number] Referrals: PCP,Unknown [Primary Care Provider] - Forms: ED Department Discharge Additional Instructions: The following information is given to patients seen in the emergency department who are being discharged to home. This information is to outline your options for follow-up care. We provide all patients seen in our emergency department with a follow-up referral. The need for follow-up, as well as the timing and circumstances, are variable depending upon the specifics of your emergency department visit. If you don't have a primary care physician on staff, we will provide you with a referral. We always advise you to contact your personal physician following an emergency department visit to inform them of the circumstance of the visit and for follow-up with them and/or the need for any referrals to a consulting specialist. The emergency department will also refer you to a specialist when appropriate. This referral assures that you have the opportunity for follow-up care with a specialist. All of these measure are taken in an effort to provide you with optimal care, which includes your follow-up. Under all circumstances we always encourage you to contact your private physician who remains a resource for coordinating your care. When calling for follow-up care, please make the office aware that this follow-up is from your recent emergency room visit. If for any reason you are refused follow-up, please contact the [facility] Emergency [facility] at and asked to speak to the emergency department charge nurse. [facility] [address] [place] [id number] 1. You declined admission today. If your symptoms return or worsen please return to the emergency room as soon as possible (Please call an ambulance). 2. Please informed your primary care provider and the architectural examiner that you were seen in the emergency room for your symptoms. I would like you to follow- up with them in the next 1-2 days. - My Orders Last 24 Hours: My Active Orders 08/23/17 11:27 EKG Documentation Completion [RC] STAT Chest 2V [CR] Stat Head wo Cont [CT] Stat 08/23/17 11:51 Sodium Chloride 0.9% [Normal Saline] 1,000 ml IV STAT - Assessment/Plan Last 24 Hours: My Active Orders 08/23/17 11:27 EKG Documentation Completion [RC] STAT Chest 2V [CR] Stat Head wo Cont [CT] Stat 08/23/17 11:51 Sodium Chloride 0.9% [Normal Saline] 1,000 ml IV STAT
[2017-08-23] MEDS ORDERED: Sodium Chloride 0.9% 1,000 ML IV ONE (11:51)
[2017-08-23 12:02] LABS: CHLORIDE,CL 104 mmol/L (98-107); SODIUM,NA 139 mmol/L (136-148)
[2017-08-23 13:22] VITALS: BP 108/79
--- NOTE | 2017-08-23 15:39 | CR ---
EXAM DATE: 08/23/17 PATIENT'S AGE: 42 Patient: KINDRA SALAZAR Facility: [place], [place] Site . Site : 1975 Study: XRay Chest [id number] 12:13:20 PM Ordering Physician: Doctor Cali Final Report: INDICATION: 42 year-old male. Chest pain. COMPARISON: None. TECHNIQUE: Two view chest. FINDINGS: The lungs are clear with the exception of a strand of linear fibrosis or atelectasis within the left lower lobe. The heart, mediastinum and pulmonary vessels are of normal size. There is no evidence of pleural disease. Postsurgical change from cervical spine fusion incompletely visualized. IMPRESSION: No acute cardiopulmonary process identified. Dictated by Thomas Grace MD @ Aug 23 2017 12:16PM (Electronic Signature) Report Signed by Proxy. LYN
--- NOTE | 2017-08-23 15:45 | CT ---
EXAM DATE: 08/23/17 PATIENT'S AGE: 42 Patient: KINDRA SALAZAR Facility: [place], [place] Site . Site : 1975 Study: CT Head [id number]/[id number] 12:16:45 PM Ordering Physician: Doctor Cali Final Report: INDICATION: 42 year-old male. Pain and numbness in the arms and face. COMPARISON: None. TECHNIQUE: A CT volumetric acquisition was performed of the brain without IV contrast. FINDINGS: The CT images reveal a normal appearance of the cerebral ventricles and basal cisterns. There is no evidence of intracranial hemorrhage, tissue infarction or mass effect. The mastoid air cells and middle ear cavities are clear. The calvarium appears intact. There is normal aeration of the visualized paranasal sinuses with the exception of trace mucosal thickening in the posterior sphenoid sinuses. IMPRESSION: Negative head CT. Please note that all CT scans at this facility use dose modulation, iterative reconstruction, and/or weight-based dosing when appropriate to reduce radiation dose to as low as reasonably achievable. Dictated by Thomas Grace MD @ Aug 23 2017 12:18PM (Electronic Signature) Report Signed by Proxy. LYN
== END 2017-08-23 13:25 | disposition home or self-care (01) ==
LOC: MW.ED 11:23
DX: R07.9 Chest pain, unspecified (principal); R20.2 Paresthesia of skin; F41.9 Anxiety disorder, unspecified; Z91.013 Allergy to seafood; Z88.8 Allergy status to other drugs, medicaments and biological substances; Z79.899 Other long term (current) drug therapy
CPT/HCPCS: 36415; 70450; 71046; 80053; 84484; 85025; 93005; 99285; A9270